=== PATIENT | male | born 2000 | race Caucasian/White ===

== ENCOUNTER 2024-10-15 12:06 | Emergency (ER) | payer OTHER ==
[~2024-10-15] VITALS: Ht 172.7 cm; Wt 95.0 kg
[2024-10-15 12:10] VITALS: TEMP 99.5
[2024-10-15 13:46] LABS: CALCIUM, TOTAL 9.2 mg/dL (8.8-10.5); CREATININE 1.07 mg/dL (0.60-1.30); GLOMERULAR FILTR. RATE CALC > 60 mL/min (>60); GLUCOSE,RANDOM 97 mg/dL (70-110); SODIUM SERUM 138 mmol/L (136-145); UREA NITROGEN, BLOOD 12 mg/dL (7-18)
[2024-10-15 13:48] LABS: PLATELET COUNT (AUTO) 239 K/uL (150-450); RED BLOOD CELL COUNT(AUTO) 4.96 MIL/uL (4.50-5.90); RED CELL DISTRIBUTION WIDTH 13.3 % (11.5-14.5); WHITE BLOOD COUNT (AUTO) 7.3 K/uL (4.5-11.0)
[2024-10-15 14:59] LABS: COVID AG,FIA SOURCE NASAL SWAB
[2024-10-15 15:13] LABS: PH,URINE DRUG SCREEN 6.0 (5.0-8.0)
[2024-10-15 15:30] LABS: ALCOHOL, URINE DRUG SCREEN NEGATIVE (NEGATIVE); AMPHET/METH SCREEN,URINE NEGATIVE (NEGATIVE); BARBITURATE SCREEN, URINE NEGATIVE (NEGATIVE); CANNABINOID SCREEN,URINE POSITIVE (NEGATIVE); COCAINE SCREEN,URINE NEGATIVE (NEGATIVE); METHADONE SCREEN, URINE NEGATIVE (NEGATIVE)
[2024-10-15 15:49] LABS: SARS-COV2 (COVID) ANTIGEN,FIA Negative (Negative)
[2024-10-15 17:53] VITALS: BP 124/77; PULSE 65; RESP 18; O2SAT 98
== END 2024-10-15 20:46 ==
LOC: EMS 12:10
DX: R45.851 Suicidal ideations (principal); F15.90 Other stimulant use, unspecified, uncomplicated; Z20.822 Contact with and (suspected) exposure to COVID-19
CPT/HCPCS: 99283; 87426; 80048; 85025; 36415; 80307; G0480

== ENCOUNTER 2024-10-16 11:46 | Emergency (ER) | payer OTHER ==
[~2024-10-16] VITALS: Ht 169.5 cm; Wt 82.3 kg
[2024-10-16 13:01] VITALS: TEMP 97.9
[2024-10-16] MEDS: IBUPROFEN 600 MG TABLET PO ONE (13:10)
[2024-10-16 16:56] VITALS: BP 117/76; PULSE 86; RESP 16; O2SAT 100
== END 2024-10-16 17:08 | disposition home or self-care (01) ==
LOC: EMS 12:58
DX: S80.211A Abrasion, right knee, initial encounter (principal); M25.561 Pain in right knee; M79.602 Pain in left arm; M25.512 Pain in left shoulder; R45.851 Suicidal ideations; F15.90 Other stimulant use, unspecified, uncomplicated; W19.XXXA Unspecified fall, initial encounter; Y93.89 Activity, other specified; Y92.89 Other specified places as the place of occurrence of the external cause; Y99.8 Other external cause status
CPT/HCPCS: 99283